=== PATIENT | male | born 1950 | race Caucasian/White ===

== ENCOUNTER 2020-06-17 12:20 | Emergency (ER) | payer OTHER ==
[2020-06-17 13:08] LABS: Absolute Lymphocytes (CBC) 1.5 K/uL (0.7-4.9); Basophils % 0.6 % (0-1.3); Hematocrit 45.8 % (39.6-49.0); Lymphocytes % 15.1 % (15.3-44.8); MPV 9.5 fL (7.6-11.3); RBC Red Blood Cell Count 5.71 M/uL (4.33-5.43)
[2020-06-17 13:17] LABS: Protime INR 1.17
[2020-06-17 13:36] LABS: ALT/SGPT 50 U/L (12-78); AST/SGOT 55 U/L (15-37); Albumin 3.8 g/dL (3.4-5.0); Alkaline Phosphatase 90 U/L (45-117); BUN Blood Urea Nitrogen 13 mg/dL (7-18); Bicarbonate 29 mmol/L (21-32); Bilirubin Direct 0.2 mg/dL (0-0.2); Bilirubin Total 0.6 mg/dL (0.2-1.0); Glucose Level 169 mg/dL (74-106); Magnesium 2.3 mg/dL (1.8-2.4); NT PRO-BNP 225 pg/mL (<125); Protein, Total 8.2 g/dL (6.4-8.2); Sodium Level 140 mmol/L (136-145); Troponin (Emerg Dept Use Only) < 0.02 ng/mL (0.0-0.045)
--- NOTE | 2020-06-17 14:09 | RAD REPORT ---
EXAM DESCRIPTION: CT - Chest For Pe Angio - 06/17/2020 1:50 pm CLINICAL HISTORY: CHEST PAIN COMPARISON: CTSTONE PROTOCOL dated 09/11/2013 TECHNIQUE: Dynamically enhanced 3 mm thick images of the chest were obtained during administration o f approximately 150mL Isovue 370 IV contrast. Coronal and oblique MIP reconstruction images were gene rated and reviewed. Exam utilizes a protocol to evaluate the pulmonary arterial tree. All CT scans are performed using dose optimization technique as appropriate and may include automated exposure control or mA/KV adjustment according to patient size. FINDINGS: No pulmonary emboli are identified. The aorta as imaged shows no acute or suspicious finding. No pericardial thickening or effusion. No infiltrate or mass in the lung parenchyma. No pleural effusion or pleural thickening. No mediastinal or hilar suspicious masses. No chest wall masses or abnormal axillary lymphadenopathy. Patient indicates pain in the collarbone region. No lung apex abnormality seen. Shoulder joints and c ollar bones are not fully assessed on this PE study. Limited upper abdomen imaging shows a heterogeneous, predominantly fat attenuation right adrenal mass . Long and short axis dimensions are 7.9 x 6.3 cm. This compares to 4.9 x 3.6 cm in 2013. This mass i s not fully evaluated on the CT chest study. Finding was felt to most likely be a myelolipoma on the 2013 study. That differential consideration remains. Adrenal adenoma possible as well. IMPRESSION: No pulmonary emboli identified. No other significant or suspicious chest findings. 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 No acute hemorrhage findings are kaya dent. However, the greater than 6 centimeter size may warrant non emergent surgical consultation for possible resection.
--- NOTE | 2020-06-17 16:30 | EDPHYS ---
Physician Documentation [facility] Name: Dejan Coleman Age: 69 yrs Sex: Male : 1950 Arrival Date: 06/17/2020 Time: 12:27 Bed 24 Private MD: ED Physician Lennox Baum HPI: 06/17 17:01 This 69 yrs old Male presents to ER via Ambulatory with complaints of chest snw pain. 17:01 The patient or guardian reports chest pain on inspiration. Onset: The symptoms/episode snw began/occurred suddenly. Associated signs and symptoms: The patient has no apparent associated signs or symptoms. Severity of symptoms: At their worst the symptoms were severe. The patient has not experienced similar symptoms in the past. Hem/Onc recently spoke with pt about stopping chemo and going on hospice as his condition is not improving any more. Pt with colon, liver, and lung masses. 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 - Social history:: Smoking status: Patient denies any tobacco usage or history of. ROS: 17:00 Constitutional: Negative for fever, chills, and weight loss, Eyes: Negative for injury, snw pain, redness, and discharge, ENT: Negative for injury, pain, and discharge, Neck: Negative for injury, pain, and swelling, Respiratory: Negative for shortness of breath, cough, wheezing, and pleuritic chest pain, Abdomen/GI: Negative for abdominal pain, nausea, vomiting, diarrhea, and constipation, Back: Negative for injury and pain, : Negative for injury, bleeding, discharge, and swelling, MS/Extremity: Negative for injury and deformity, Skin: Negative for injury, rash, and discoloration, Neuro: Negative for headache, weakness, numbness, tingling, and seizure, Psych: Negative for depression, anxiety, suicide ideation, homicidal ideation, and hallucinations. 17:00 Cardiovascular: Positive for chest pain, of the from midclavicular line to 4th anterior intercostal space- pain on inspiration. Exam: 16:56 Constitutional: This is a well developed, well nourished patient who is awake, alert, snw and in no acute distress. Head/Face: Normocephalic, atraumatic. Eyes: Pupils equal round and reactive to light, extra-ocular motions intact. Lids and lashes normal. Conjunctiva and sclera are non-icteric and not injected. Cornea within normal limits. Periorbital areas with no swelling, redness, or edema. ENT: Nares patent. No nasal discharge, no septal abnormalities noted. Tympanic membranes are normal and external auditory canals are clear. Oropharynx with no redness, swelling, or masses, exudates, or evidence of obstruction, uvula midline. Mucous membranes moist. Neck: Trachea midline, no thyromegaly or masses palpated, and no cervical lymphadenopathy. Supple, full range of motion without nuchal rigidity, or vertebral point tenderness. No Meningismus. Chest/axilla: Normal chest wall appearance and motion. Nontender with no deformity. No lesions are appreciated. Cardiovascular: Regular rate and rhythm with a normal S1 and S2. No gallops, murmurs, or rubs. Normal PMI, no JVD. No pulse deficits. Respiratory: Lungs have equal breath sounds bilaterally, clear to auscultation and percussion. No rales, rhonchi or wheezes noted. No increased work of breathing, no retractions or nasal flaring. Abdomen/GI: Soft, non-tender, with normal bowel sounds. No distension or tympany. No guarding or rebound. No evidence of tenderness throughout. Back: No spinal tenderness. No costovertebral tenderness. Full range of motion. Neuro: Awake and alert, GCS 15, oriented to person, place, time, and situation. Cranial nerves II-XII grossly intact. Motor strength 5/5 in all extremities. Sensory grossly intact. Cerebellar exam normal. Normal gait. Psych: Awake, alert, with orientation to person, place and time. Behavior, mood, and affect are within normal limits. 16:56 Skin: Appearance: normal except for affected area, PVD, discoloration and mild edema to bilateral lower extremities. Vital Signs: 12:27 BP 114 / 61; Pulse 91; Resp 18; Temp 98.1(O); Pulse Ox 98% on R/A; Weight 138.35 kg; em Height 6 ft. 2 in. (187.96 cm); Pain 0/10; 12:56 BP 129 / 78; Pulse 90; Resp 18; Temp 97.9(TE); Pulse Ox 96% on R/A; Pain 8/10; ks7 13:44 BP 132 / 69; Pulse 89; Resp 18; Temp 97.8(TE); Pulse Ox 96% on R/A; Pain 0/10; ks7 14:07 BP 123 / 69; Pulse 74; Resp 18; Pulse Ox 95% on R/A; Pain 0/10; ks7 15:00 BP 136 / 72; Pulse 73; Resp 18; Pulse Ox 95% ; Pain 0/10; ks7 16:00 BP 114 / 75; Pulse 83; Resp 18; Temp 97.8(TE); Pulse Ox 97% ; Pain 7/10; ks7 12:27 Body Mass Index 39.16 (138.35 kg, 187.96 cm) em MDM: 13:28 Patient medically screened. snw 15:00 Data reviewed: vital signs, nurses notes. Data interpreted: Pulse oximetry: on room air snw is 97 %. Interpretation: normal. Counseling: I had a detailed discussion with the patient and/or guardian regarding: the historical points, exam findings, and any diagnostic results supporting the discharge/admit diagnosis, lab results, radiology results, the need for outpatient follow up, for definitive care, to return to the emergency department if symptoms worsen or persist or if there are any questions or concerns that arise at home. Response to treatment: There is no appreciated change of the patient's symptoms at this time, pt declines IV or PO pain medications, Pt states he is ready to leave. Does not want intervention. Special discussion: Based on the patient's history, exam, and Dx evaluation, there is no indication for emergent intervention or inpatient Tx. It is understood by the patient/guardian that if the Sx's persist or worsen they need to return immediately for re-evaluation. Based on the history and exam findings, there is no indication for further emergent testing or inpatient evaluation. I discussed with the patient/guardian the need to see the primary care provider for further evaluation of the symptoms. 06/17 12:56 Order name: Basic Metabolic Panel md 06/17 12:56 Order name: CBC with Diff; Complete Time: 13:26 md 06/17 12:56 Order name: LFT's md 06/17 12:56 Order name: Magnesium; Complete Time: 13:37 mt 06/17 12:56 Order name: NT PRO-BNP; Complete Time: 13:37 mt 06/17 12:56 Order name: PT-INR; Complete Time: 13:27 mt 06/17 12:56 Order name: Troponin (emerg Dept Use Only); Complete Time: 13:37 mt 06/17 12:56 Order name: EKG; Complete Time: 12:57 mt 06/17 12:56 Order name: Cardiac monitoring; Complete Time: 12:56 mt 06/17 12:56 Order name: EKG - Nurse/Tech; Complete Time: 13:13 mt 06/17 12:57 Order name: Basic Metabolic Panel; Complete Time: 13:37 EDMS 06/17 12:57 Order name: Liver (Hepatic) Function; Complete Time: 13:37 EDMS 06/17 13:26 Order name: CT Chest For PE Angio; Complete Time: 14:37 snw 06/17 12:56 Order name: IV Saline Lock; Complete Time: 12:56 mt 06/17 12:56 Order name: Labs collected and sent; Complete Time: 12:56 mt 06/17 12:56 Order name: O2 Per Protocol; Complete Time: 12:56 mt 06/17 12:56 Order name: O2 Sat Monitoring; Complete Time: 12:56 mt Administered Medications: 14:11 Not Given (Patient Refused): Dilaudid 1 mg IVP once; RASS on ADMIN: Combtv4, Very ks7 Agttd3, Agttd2, Rstlss1, AlertClm0, Drwsy-1, Lt Sdtn-2, Mod Sdtn-3, Dp Sdtn-4, UnArsble-5 Disposition: 18:25 Co-signature as Attending Physician, Lennox Baum MD. rn Disposition: 06/17/20 16:29 Discharged to Home. Impression: Pleurisy. - Condition is Stable. - Discharge Instructions: Chest Wall Pain, Pleurisy. - Prescriptions for Tramadol 50 mg Oral Tablet - take 1 tablet by ORAL route every 8 hours as needed; 12 tablet. - Medication Reconciliation Form, Thank You Letter, Antibiotic Education, Prescription Opioid Use form. - Follow up: Emergency Department; When: As needed; Reason: Worsening of condition. Follow up: Private Physician; When: 2 - 3 days; Reason: Recheck today's complaints, Continuance of care, Re-evaluation by your physician. Signatures: Dispatcher [employer] Cyn Sheridan, LUZMARIA ENGAGEMENT ENGINEER-Herminio Hewitt, RN Lennox Marquez MD MD rn [facility] Gemma Floyd RN RN ks7 Corrections: (The following items were deleted from the chart) 16:46 16:29 06/17/2020 16:29 Discharged to Home. Impression: Pleurisy. Condition is Stable. ks7 Forms are Medication Reconciliation Form, Thank You Letter, Antibiotic Education, Prescription Opioid Use. Follow up: Emergency Department; When: As needed; Reason: Worsening of condition. Follow up: Private Physician; When: 2 - 3 days; Reason: Recheck today's complaints, Continuance of care, Re-evaluation by your physician. snw
--- NOTE | 2020-06-17 16:30 | ER ---
Nurse's Notes [facility] Name: Dejan Coleman Age: 69 yrs Sex: Male : 1950 Arrival Date: 06/17/2020 Time: 12:27 Bed 24 Private MD: Diagnosis: Pleurisy Presentation: 06/17 12:27 Chief complaint: Patient states: chest pain that started on Wednesday, reports pain when em cough, pain in right collar bone that goes down, denies N/V/D or fever. Coronavirus screen: Patient reports a cough. Patient denies shortness of breath or difficulty breathing. Patient denies measured and/or subjective temperature greater than 100.4F prior to today's visit. Patient denies travel on a cruise ship or to a country the [facility] currently lists as an affected area. Patient denies contact with known and/or suspected case of COVID-19. Ebola Screen: Patient negative for fever greater than or equal to 101.5 degrees Fahrenheit, and additional compatible Ebola Virus Disease symptoms Patient denies exposure to infectious person. Patient denies travel to an Ebola-affected area in the 21 days before illness onset. No symptoms or risks identified at this time. Initial Sepsis Screen: Does the patient meet any 2 criteria? HR > 90 bpm. Yes Does the patient have a suspected source of infection? No. Patient's initial sepsis screen is negative. Risk Assessment: Do you want to hurt yourself or someone else? Patient reports no desire to harm self or others. Onset of symptoms was June 15, 2020. 12:27 Method Of Arrival: Ambulatory em 12:27 Acuity: PETROS 3 em Triage Assessment: 12:57 General: Appears uncomfortable, obese, well groomed, Behavior is cooperative, ks7 appropriate for age, anxious. Pain: Complains of pain in neck Right side Pain radiates to right arm Pain currently is 8 out of 10 on a pain scale. Quality of pain is described as sharp, Pain began Is continuous. 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 - Social history:: Smoking status: Patient denies any tobacco usage or history of. Screenin:53 Abuse screen: Denies threats or abuse. Nutritional screening: No deficits noted. ks7 Tuberculosis screening: No symptoms or risk factors identified. Fall Risk None identified. Assessment: 12:58 Musculoskeletal: Reports pain in neck, Right radiates into arm. pt states it starts ks7 above clavicle, sharp pain. 13:53 Reassessment: Patient is alert, oriented x 3, equal unlabored respirations, skin ks7 warm/dry/pink. pt declined pain meds prior to transport to [place]. pt states he is not in pain right now. 14:13 Reassessment: Patient denies pain at this time. pt declined dilaudid, states his pain ks7 has improved. 16:03 Reassessment: pt tired of sitting in room. took off all his monitoring leads and got ks7 dressed. IV removed, intact, bleeding controlled. notified Cyn ANDERSON that pt would like to go home. Pt c/o pain to L shoulder with movement. offered pt IV meds and oral meds. pt unhappy d/t no updates on tests, and waiting in hospital but keeps refusing pain meds. Waiting for DC paperwork. 16:44 Reassessment: pt d/c'd Pt not updated on test results by ACCESS SERVICES LIBRARIAN/PA. ks7 Vital Signs: 12:27 BP 114 / 61; Pulse 91; Resp 18; Temp 98.1(O); Pulse Ox 98% on R/A; Weight 138.35 kg; em Height 6 ft. 2 in. (187.96 cm); Pain 0/10; 12:56 BP 129 / 78; Pulse 90; Resp 18; Temp 97.9(TE); Pulse Ox 96% on R/A; Pain 8/10; ks7 13:44 BP 132 / 69; Pulse 89; Resp 18; Temp 97.8(TE); Pulse Ox 96% on R/A; Pain 0/10; ks7 14:07 BP 123 / 69; Pulse 74; Resp 18; Pulse Ox 95% on R/A; Pain 0/10; ks7 15:00 BP 136 / 72; Pulse 73; Resp 18; Pulse Ox 95% ; Pain 0/10; ks7 16:00 BP 114 / 75; Pulse 83; Resp 18; Temp 97.8(TE); Pulse Ox 97% ; Pain 7/10; ks7 12:27 Body Mass Index 39.16 (138.35 kg, 187.96 cm) em Vitals: 12:58 Cardiac Rhythm Assessment Regular. ks7 ED Course: 12:27 Patient arrived in ED. em 12:31 Triage completed. em 12:32 Arm band placed on. em 12:49 Gemma Floyd, RN is Primary Nurse. ks7 12:56 Inserted saline lock: 20 gauge in left antecubital area, using aseptic technique. Blood mt collected. 13:12 EKG done, by ED staff, reviewed by Lennox Baum MD. mt 13:23 Liver (Hepatic) Function Sent. ks7 13:23 Basic Metabolic Panel Sent. ks7 13:24 Magnesium Sent. ks7 13:26 Cyn Monzon FNP-C is PHCP. snw 13:26 Lennox Baum MD is Attending Physician. snw 13:40 Basic Metabolic Panel Sent. ks7 13:40 LFT's Sent. ks7 13:[address] via wheelchair. ks7 13:50 CT Chest For PE Angio In Process Unspecified. EDMS 13:53 Patient has correct armband on for positive identification. Placed in gown. Bed in low ks7 position. Call light in reach. Side rails up X2. 13:53 No provider procedures requiring assistance completed. ks7 13:56 Patient moved back from CT. ks7 14:31 pt ambulated to bathroom and back to room independently using his cane. steady on feet, ks7 no s/s of distress. 16:05 IV discontinued, intact, bleeding controlled, No redness/swelling at site. Pressure ks7 dressing applied. Administered Medications: 14:11 Not Given (Patient Refused): Dilaudid 1 mg IVP once; RASS on ADMIN: Combtv4, Very ks7 Agttd3, Agttd2, Rstlss1, AlertClm0, Drwsy-1, Lt Sdtn-2, Mod Sdtn-3, Dp Sdtn-4, UnArsble-5 Outcome: 16:05 Condition: stable ks7 16:29 Discharge ordered by . snw 16:44 Discharged to home ambulatory. ks7 16:44 Discharge instructions given to patient, Instructed on discharge instructions, medication usage, Demonstrated understanding of instructions, medications. 16:46 Patient left the ED. ks7 Signatures: Dispatcher [employer] EDCyn Calles, INDUSTRIAL SPECIALIST-C INDUSTRIAL SPECIALIST-Herminio Hewitt, RN Jenn Trejo mt, Kathleen RN RN ks7
[2020-06-18 03:35] VITALS: TEMP 97.8
[2020-06-18 03:39] VITALS: BP 114/75; O2SAT 97
--- NOTE | 2020-06-18 10:16 | EKG ---
Test Date: 2020-06-17 Test Time: 13:12:40 Mapping Analyst: KAYY MEASUREMENT RESULTS: Intervals: Rate: 83 KS: 138 QRSD: 82 QT: 382 QTc: 448 [place]: P: 54 KS: 138 QRS: 46 T: 15 INTERPRETIVE STATEMENTS: Normal sinus rhythm Cannot rule out Anterior infarct, age undetermined Abnormal ECG No previous ECG available for comparison Electronically Signed On 06-18-20 10:14:00 CDT by Matthew Spicer
== END 2020-06-17 16:46 | disposition home or self-care (01) ==
LOC: ER 12:20
DX: R09.1 Pleurisy (principal); Z85.038 Personal history of other malignant neoplasm of large intestine; Z85.46 Personal history of malignant neoplasm of prostate
CPT/HCPCS: 93005; 85025; 80048; 36415; 83735; 85610; 80076; 84484; 83880; 71275; 99284; Q9967